=== PATIENT | male | born 1970 | race Caucasian/White ===

== ENCOUNTER 2024-07-24 14:32 | Outpatient (AMB) | payer OTHER, SELFPAY ==
[2024-07-24 14:41] VITALS: BP 137/94; PULSE 94; O2SAT 97; BMI 44.9
--- NOTE | 2024-07-24 14:41 | MHC.OFFVIS ---
Vital Signs 07/24/24 14:41 Height 5 ft 11 in Weight 322 lb BMI 44.9 BP 137/94 H Blood Pressure Location Lt brachial Position Sitting Pulse 94 Pulse Source Pulse Oximeter Pulse Oximetry (%) 97 Oxygen Delivery Method Room Air Intake Visit Reasons: Right Shoulder Pain Allergies No Known Allergies Allergy (Verified 07/24/24 15:43) HPI Comments Details: Scott is a very pleasant 54-year-old male who presents to the office today for evaluation management of his chronic right shoulder pain Patient has suffered an injury while at work 04/2023. He was carrying a sheet of plywood overhead and it slipped, when he went to grab it he felt a pop in his shoulder. He was evaluated in the emergency room, then by Orthopedics. Underwent surgery for the right shoulder but pain persists. Patient has completed physical therapy with no improvement. He has been taking nonsteroidal anti-inflammatory medications and Tylenol without improvement Amitriptyline was started by Orthopedics, this allowed him to get about 4 hours of uninterrupted sleep however after recent dose increase to 100 mg at bedtime he started to have vivid dreams and nightmares He was referred to our office for options including medication management. He is not interested in opioid medications at this time He had a cortisone injection in his shoulder about 6 months ago which did not provide him any relief Pain today is rated as 4/10, constant worse with movement. In terms of muscle damage condition is described as pulsing, throbbing, dull, sore, hurting, aching, tiring, shooting, stabbing, ranging, pinching, tearing Pain is constant, worse at bedtime and with movement. Denies current use of anti coagulants. Denies history of diabetes or elevated A1c Denies implantable devices, pacemaker or defibrillator Endorses current use of nicotine/tobacco, greater than 1 pack per day Endorses rare EtOH use, less than 1 drink a month Denies current use of illicit/recreational substances Review of Systems Const All systems reviewed & are unremarkable except as noted in HPI and below Physical Exam Vital Signs: Last Vital Signs Pulse 94 07/24/24 14:41 BP 137/94 H 07/24/24 14:41 Pulse Ox 97 07/24/24 14:41 Oxygen Delivery Method Room Air 07/24/24 14:41 BMI result Body Mass Index 44.9 General: awake, alert, oriented. Answers questions appropriately. Fully engaged in examination. Skin: warm, dry, intact HEENT: Normocephalic. Hearing intact. Cardiac: External chest normal in appearance. Respiratory: No cough, audible wheezing or stridor. Abdomen: without gross distension. MS: No obvious swelling or deformities. Right shoulder: Tenderness to palpation posterior and lateral right shoulder. Tenderness over GH. Tenderness over biceps tendon. Decreased range of motion, pain with overhead reach and behind the back reach. Neurological: Oriented to person, place, time and situation. Thought process intact. No gait abnormalities appreciated. Psychiatric: Appropriate mood and affect. Good judgment and insight. Results Reviewed Results Reviewed: 02/11/2023 MRI right shoulder Assessment & Plan Assessment & Plan (1) Right shoulder pain: Code(s): M25.511 - Pain in right shoulder Category: Medical Plan Scott is a very pleasant 54-year-old male who presented to the office today for evaluation management of his chronic right shoulder pain. Will discontinue amitriptyline given patient's reported side effects of nightmares. We will taper, 50 mg q.h.s. x2 weeks then 25 mg q.h.s. x2 weeks. New prescription for gabapentin 300 mg p.o. t.i.d.. Patient was advised on cautions for use. May cause drowsiness, do not take with any other MECHANIC GENERAL OPERATIONAL TEST depressants. Patient has exhausted conservative therapy including PT, NSAIDs, cortisone injections. Will schedule for right fluoroscopy/US guided diagnostic suprascapular nerve block with local anesthetic. If patient reports good results with plan for right suprascapular sprint PNS All questions and concerns were answered, patient agrees with the plan. Follow up after nerve block, sooner if needed Medications: New amitriptyline 50 mg at bedtime for 2 weeks then decrease to 25 mg daily at bedtime for 2 weeks then discontinue use 50 mg (2 x 25 mg) PO BEDTIME 60 tabs 0RF gabapentin 300 mg PO TID 90 caps 1RF diclofenac potassium Take with food. Do not take with any other nonsteroidal anti-inflammatory medications. 50 mg PO BID 60 tabs 0RF Coding Level of Care Code New Pt Level 4 (89181) Complex EM visit Add On G2211 Diagnoses Right shoulder pain M25.511
== END 2024-07-24 15:37 | disposition home or self-care (01) ==
PROVIDERS: Referring Provider Orthopaedic Surgery; Visit Provider Registered Nurse Emergency
DX: M25.511 Pain in right shoulder (principal)
CPT/HCPCS: 99204; G2211

== ENCOUNTER → 2024-07-24 14:32 | Outpatient (BNVA) | payer OTHER, SELFPAY | PROVIDERS: Referring Provider Orthopaedic Surgery; Visit Provider Registered Nurse Emergency | DX: M25.511 Pain in right shoulder (principal) | CPT/HCPCS: 99202 ==

== ENCOUNTER 2025-01-21 08:20 | Outpatient (AMB) | payer OTHER, SELFPAY ==
[2025-01-21 08:49] VITALS: BP 137/98; PULSE 78; O2SAT 97; BMI 44.8
--- NOTE | 2025-01-21 08:49 | A.OFFVIS_ITS ---
Vital Signs 3 01/21/25 08:49 Height 5 ft 11 in Weight 321 lb BMI 44.8 BP 137/98 H Blood Pressure Location Rt brachial Position Sitting Pulse 78 Pulse Source Pulse Oximeter Pulse Oximetry (%) 97 Oxygen Delivery Method Room Air Intake Visit Reasons: FU for Rx refill Communication Lecturer Required: No Allergies No Known Allergies Allergy (Verified 01/21/25 08:50) Medication List - Last Reconciled 01/21/25 by Annie Haider, BENEFIT SPECIALIST celecoxib (Celebrex) 50 mg PO BID gabapentin 400 mg PO TID HPI Comments Details: The patient is a 54-year-old male presenting for right shoulder pain and medication adjustment. The chronic right shoulder pain began following a work accident that resulted in a bicep tendon rupture and rotator cuff damage. Surgical intervention involved partial repair and debridement of bone spurs. Despite post-operative physical therapy, the patient experienced exacerbated symptoms, leading to cessation of therapy. The shoulder pain persists with patterns of radiation across the shoulder and down into the back, worsening with movement and causing sleep disturbances. Current treatment includes gabapentin and Celebrex, with procedural plans delayed due to workman's compensation issues. Patient has been in contact with his sql ssis developer but they have not received a response from relay adjuster on approval for diagnostic injection. - Onset: Following an accident involving a bicep tendon rupture and rotator cuff injury - Quality: Persistent, radiating pain - Location: Shoulder and arm, radiating to the back - Exacerbating Factors: Physical activity, certain arm movements - Relieving Factors: Medication (gabapentin, celebrex), rest - Interference: Sleep disturbances, difficulty with daily activities requiring shoulder use - Affect: The pain is impacting sleep quality and daily functioning - Analgesia: Currently using gabapentin 400 mg three times a day and celebrex - Adverse Effects: No significant side effects from gabapentin reported - Activities of Daily Living: Difficulty with tasks involving shoulder use, disrupted sleep - Aberrant Drug Related Behaviors: None reported Prior: Scott is a very pleasant 54-year-old male who presents to the office today for evaluation management of his chronic right shoulder pain Patient has suffered an injury while at work 04/2023. He was carrying a sheet of plywood overhead and it slipped, when he went to grab it he felt a pop in his shoulder. He was evaluated in the emergency room, then by Orthopedics. Underwent surgery for the right shoulder but pain persists. Patient has completed physical therapy with no improvement. He has been taking nonsteroidal anti-inflammatory medications and Tylenol without improvement Amitriptyline was started by Orthopedics, this allowed him to get about 4 hours of uninterrupted sleep however after recent dose increase to 100 mg at bedtime he started to have vivid dreams and nightmares He was referred to our office for options including medication management. He is not interested in opioid medications at this time He had a cortisone injection in his shoulder about 6 months ago which did not provide him any relief Pain today is rated as 4/10, constant worse with movement. In terms of muscle damage condition is described as pulsing, throbbing, dull, sore, hurting, aching, tiring, shooting, stabbing, ranging, pinching, tearing Pain is constant, worse at bedtime and with movement. Denies current use of anti coagulants. Denies history of diabetes or elevated A1c Denies implantable devices, pacemaker or defibrillator Endorses current use of nicotine/tobacco, greater than 1 pack per day Endorses rare EtOH use, less than 1 drink a month Denies current use of illicit/recreational substances Review of Systems Const Details: - Musculoskeletal: Reports chronic right shoulder pain and impaired function in shoulder use - Neurological: Denies brain fog, no reported side effects impacting cognitive function Physical Exam Vital Signs: Last Vital Signs Pulse 78 01/21/25 08:49 BP 137/98 H 01/21/25 08:49 Pulse Ox 97 01/21/25 08:49 Oxygen Delivery Method Room Air 01/21/25 08:49 BMI result Body Mass Index 44.8 General: awake, alert, oriented. Answers questions appropriately. Fully engaged in examination. Skin: warm, dry, intact HEENT: Normocephalic. Hearing intact. Cardiac: External chest normal in appearance. Respiratory: No cough, audible wheezing or stridor. Abdomen: without gross distension. MS: No obvious swelling or deformities. Right shoulder: Tenderness to palpation posterior and lateral aspect. Tenderness over GH. Tenderness over biceps tendon. Decreased range of motion. Neurological: Oriented to person, place, time and situation. Thought process intact. No gait abnormalities appreciated. Psychiatric: Appropriate mood and affect. Good judgment and insight. Results Reviewed Results Reviewed: 02/11/2023 MRI right shoulder Assessment & Plan Assessment & Plan (1) Right shoulder pain: Code(s): M25.511 - Pain in right shoulder Category: Medical Plan I will increase the gabapentin dosage to 600 mg three times a day given the patient's tolerance and lack of adverse effects and reassess pain management. The current celebrex dose will be maintained. I advised cautious titration of activity to avoid exacerbation. Follow-up is planned for six months or sooner if required. We will resubmit for workman's compensation approval for the right fluoroscopy/US guided diagnostic suprascapular nerve block with local anesthetic, aiming to address procedural delays. During our discussion, I recommended increasing the gabapentin dosage to 600 mg three times a day based on current tolerability. We discussed the challenges with workman's compensation and plan to resubmit the diagnostic injection proposal to expedite the procedural approval process. The patient understands the rationale behind the medication adjustment, including potential benefits and risks, and agrees with the plan. I encouraged the continuation of prescribed exercises and educated on monitoring for any increased side effects. Follow-up was agreed upon in six months or sooner if the workman's compensation situation requires it. - Increase gabapentin to 600 mg three times daily. - Continue current celebrex prescription. - Report any increased fatigue or side effects from the new medication dosage. - Monitor changes in pain levels and function. - Engage in manageable physical activities to maintain shoulder range of motion. - Coordinate with your employment attorney regarding workman's compensation delays. - Schedule a follow-up in six months or earlier if needed depending on the workman's compensation progress. Patient was informed and verbally consented to the use of an ambient scribe for clinic note documentation during this visit. Medications: New 2 gabapentin 600 mg PO TID 90 tabs 5RF Refilled 2 celecoxib (Celebrex) Discontinue diclofenac prior to taking this medication 50 mg PO BID 60 caps 5RF Discontinued 2 gabapentin Discontinued Reason: Doctor's Order 400 mg PO TID 90 caps 3RF Coding Level of Care Code Est Pt Level 3 (88708) Complex EM visit Add On G2211 Diagnoses Right shoulder pain M25.511
== END 2025-01-21 09:22 | disposition home or self-care (01) ==
LOC: HO.PMC 08:21
PROVIDERS: Visit Provider Registered Nurse Emergency
DX: M25.511 Pain in right shoulder (principal)
CPT/HCPCS: 99213; G2211

== ENCOUNTER → 2025-01-21 08:20 | Outpatient (BNVA) | payer OTHER, SELFPAY | PROVIDERS: Visit Provider Registered Nurse Emergency | DX: M25.511 Pain in right shoulder (principal) | CPT/HCPCS: 99212 ==

== ENCOUNTER 2025-02-24 06:29 | Outpatient (REF) | payer OTHER, SELFPAY ==
--- NOTE | ~2025-02-24 | FL_ITS ---
EXAMINATION: XR FLUOROSCOPY WITH IMAGES CLINICAL INFORMATION: Right shoulder pain management injection. COMPARISON: None available. TECHNIQUE: Fluoroscopy provided to: Dr. Cifuentes Fluoroscopy time: 0.3 minutes DAP: [id number] [id number] Images: 2 FINDINGS: 2 fluoroscopic spot images taken during pain management injection. Please refer to the full operative report for detail. FL/FL guidance in treatment room IMPRESSION: Fluoroscopic guidance. Electronically signed by: Ludwig Reyes MD 02/26/2025 01:26 PM EDT
== END 2025-02-24 06:30 | disposition home or self-care (01) ==
LOC: CF 06:29
PROVIDERS: Visit Provider Anesthesiology
DX: M25.511 Pain in right shoulder (principal)
CPT/HCPCS: 64418; J2003; J2795; Q9967

== ENCOUNTER 2025-02-24 13:06 | Outpatient (AMB) | payer OTHER, SELFPAY ==
[2025-02-24 13:14] VITALS: BP 118/78; PULSE 75; RESP 16; O2SAT 95
--- NOTE | 2025-02-24 13:14 | A.OFFVIS_ITS ---
Vital Signs 02/24/25 13:14 02/24/25 13:35 BP 118/78 122/82 Blood Pressure Location Lt brachial Lt brachial Position Sitting Sitting Respiration 16 16 Pulse 75 75 Pulse Source Pulse Oximeter Pulse Oximeter Pulse Oximetry (%) 95 95 Oxygen Delivery Method Room Air Room Air Intake Visit Reasons: RIGHT DIAGNOSTIC SUPRASCAPULAR NERVE BLOCK Supervisor Frame Assembly Required: No Allergies No Known Allergies Allergy (Verified 02/24/25 13:14) Medication List - Last Reconciled 02/24/25 by Olga Emanuel LPN celecoxib (Celebrex) 50 mg PO BID gabapentin 600 mg PO TID Physical Exam Vital Signs: Last Vital Signs Pulse 75 02/24/25 13:35 Resp 16 02/24/25 13:35 BP 122/82 02/24/25 13:35 Pulse Ox 95 02/24/25 13:35 Oxygen Delivery Method Room Air 02/24/25 13:35 Assessment & Plan Assessment & Plan (1) Right shoulder pain: Code(s): M25.511 - Pain in right shoulder Category: Medical Plan Right diagnostic suprascapular nerve block. Scott is 54 years old gentleman who is suffering from labral tear of the right shoulder glenohumeral joint, status post intra-articular steroid injections, status post unsuccessful surgery to repair the glenohumeral joint with chronic pain in the right shoulder mostly on the posterior surface. He came today to the operating room to receive diagnostic suprascapular nerve block. Informed consent was carefully explained to the patient risks of bleeding infection and pneumothorax were explained to the patient. He was taken to the operating room and positioned prone on operating table with a pillow under his right shoulder. Time-out was performed delineating name and date of of the patient side and site of the procedure as well as patient allergies. His right side of the upper back right side of the neck and posterior shoulder were prepped with ChloraPrep and draped with sterile self adhesive utility towels. C-arm was brought over the operating field and picture of the right scapula was demonstrated on the screen. Coracoid process and suprascapular notch were detected on the screen. The suprascapular notch was chosen as the target of the injection. The projection of the target to the skin was injected with mixture of lidocaine 2% and ropivacaine 0.5% one-to-one. After that 22 gauge 3-1/2 inch needle was driven to were the point of interest in tunnel vision fashion. When the tip of the needle gently contacted the bone injection of the contrast was performed demonstrating no intravascular and no pleural spread of the contrast. Injection of the diagnostic medication consisting of ropivacaine 0.5% 3 mL was performed after that into the needle. Upon completion of the injection the needle was removed. The patient tolerated the procedure well. He went outside of the operating room to recovery room where he recovered uneventfully. Orders: Orders FL guidance in treatment room Today M25.511 - Pain in right shoulder Coding Level of Care Code Procedure Only Diagnoses Right shoulder pain M25.511
[2025-02-24 13:35] VITALS: BP 122/82; PULSE 75; RESP 16; O2SAT 95
--- OUTSIDE RECORDS SUMMARY | 2025-02-24 15:05 | XMS_ITS | Clinical Summary ---
Author Organization [facility] Address [address] [place] [place] [address] Care Team Providers Care School Transportation Director Name Role Phone Jose Temple Primary Care Provider + Allergies Active Allergy Reactions Criticality Noted Date Comments Azithromycin Anaphylaxis High 04/26/2020 Cephalexin Hives 12/19/2024 Medications tadalafiL (CIALIS) 10 MG tablet 0 Active colchicine (COLCRYS) 0.6 mg tablet See Instructions, DAY 1 TAKE 2 TABLETS 1ST SIGN OF GOUT FOLLOWED BY 1 TABLET IN ONE HR DAY 2 TAKE 1 TABLET 2X DAY UNTIL FLARE RESOLVES, # 17 tablet, Refills 0, Maintenance, 10/10/24 10:55:00 AM EST, Instructions Replace Required Details, Route to Pharmacy Electronically, [id number], 177.8, cm, 06/02/24 7:33:00 EDT, Height, 143, kg, 07/03/23 15:20:00 EDT, Dry Weight 4 Active tadalafiL (Cialis) 10 MG tablet Take 1 tablet (10 mg total) by mouth 3 Active sodium chloride (OCEAN) 0.65 % nasal spray Instill 1 spray into each nostril as needed for congestion or rhinitis 5 12/19/19 26 Active Encounters Date Type Department Care Team Description 12/19/2024 9:40 AM EST Office Visit [facility] [address] [place] [address] [phone] Payton Rosa, ANABELLA Influenza due to identified novel influenza A virus with other respiratory manifestations (Primary Dx); Fever, unspecified fever cause; Upper respiratory infection, acute; Acute cough from Last 3 Months Social History Tobacco Use Types Packs/Day Years Used Date Smoking Tobacco: Every Day Cigarettes 1.5 38.2 Started: 12/19/1986 Smokeless Tobacco: Never Tobacco Cessation:Ready to Q uit: No; Counseling Given: Yes Comments:counseled him on dangers of smoking Sex and Gender Information Value Date Recorded Sex Assigned at Not on file Legal Sex Male 2:26 PM EDT Gender Identity Not on file Sexual Orientation Not on file Last Filed Vital Signs Vital Sign Reading Time Taken Comments Blood Pressure 130/85 12/19/2024 10:21 AM EST Pulse 100 12/19/2024 10:21 AM EST Temperature 36.8 ??C (98.2 ??F) 12/19/2024 10:[address] Respiratory Rate 16 12/19/2024 10:21 AM EST Oxygen Saturation 96% 12/19/2024 10:21 AM EST Inhaled Oxygen Concentration - - Weight 129 kg (285 lb) 04/26/2020 3:01 PM EDT Height 180.3 cm (5' 11 ) 04/26/2020 3:01 PM EDT Body Mass Index 39.75 04/26/2020 3:01 PM EDT Plan of Treatment Health Maintenance Due Date Last Done Comments Colorectal Cancer: COLONOSCO PY Screening every 10 yrs (or Modifier) 1972 Depression: Screening Annual ly using PHQ-2/9 in Adults 18 yrs or above (or HM Modifier)([facility]) 1972 Hepatitis C Virus Infection in Adolescents and Adults: Screening (or Modifier) ([facility]) 1990 [facility] Screening Reminder: Sera feliciano for all adults ([facility]) 1990 Pneumococcal Vaccination Scr eening: Patients 50+ yrs of age ([facility]) (1 of 2 - PCV) 1991 Lipid Screening: Every 5 yrs for Men aged 35+ (or HM Modifier) ([facility]) 2008 Colorectal Cancer Screening 45 -75 Yrs (or HM Modifier) 2017 Colorectal Cancer: FLEXIBLE SIGMOIDOSCOPY Screening every 5 yrs 2017 Colorectal Cancer: Fecal Immunochemical Test (FIT) Annually [facility] 2017 Colorectal Cancer: High-sens itivity gFOBT Screening Annually [facility] 2017 Colorectal Cancer: Stool Col oguard Screening every 3 yrs 2017 Colorectal Cancer:CT Colonog ivelisse Screening every 5 yrs 2017 Lung Cancer: Screening Annua lly in adults aged 50 to 80 years (or HM Modifiers)([facility]) 2022 Zoster/Shingles Vaccine Seri es Screening: Adults aged 18+ yrs (or HM Modifiers)([facility]) (1 of 2) 2022 COVID-19 Vaccine Screening: Initial Series and Booster Status ([facility]) ( season) 2024 02/21/2022, 01/12/2021, 12/15/2020 Flu Vaccination: Yearly for ages 18mos through 64 years (or Modifier)([facility]) 05/29/2025 Tobacco Smoking Cessation: i n Adults excluding Women: Behavioral and Pharmacotherapy Interventions ([facility]) 12/19/2025 12/19/2024 DTaP/Tdap/Td Vaccines ([facility]) (2 - Td or Tdap) 11/22/2028 11/22/2018 Medical Devices Not on file Procedures Procedure Name Priority Date/Time Associated Diagnosis Comments INFLUENZA MOLECULAR POCT Routine 12/19/2024 11:08 AM EST Fever, unspecified fever cause from Last 3 Months Results * (ABNORMAL) Influenza Molecular POCT (12/19/2024 11:08 AM EST) Pathologist [facility] POC MOLECULAR INFLUENZA A AGN Positive(A) Negative, Invalid, Not Tested, ERRONEOUS FRANCIS [id number] POC MOLECULAR INFLUENZA B AGN Negative Negative, Invalid, Not Tested, ERRONEOUS FRANCIS [id number] INTERNAL CONTROLS VALID Yes--Test working appropriately FRANCIS [id number] Expiration Date 09/06/25 FRANCIS [id number] Lot Number [id number] FRANCIS [id number] TEST BRAND NAME _ MOLECULAR FLU ID Now Flu FRANCIS [id number] Other 12/19/2024 11:0 8 AM EST us Payton Rosa NP POINT OF CARE TEST ORDERABLES Fi nal Result FRANCIS [id number] [address] [place] [address], [place] from Last 3 Months Insurance [facility] Care Teams School Transportation Director Relationship Specialty Start Date End Date Jose Temple PA [address] [place] [phone] PCP - General Physician Compressed Air Pile Driver Operator 04/26/20
--- OUTSIDE RECORDS SUMMARY | 2025-02-24 15:05 | XMS_ITS | Clinical Summary ---
Author Organization [facility] it Address [address] [place] [address] Care Team Providers Care Cost Estimator Name Role Phone Unavailable Primary Care Provider Unavailabl e Social History Tobacco Use Types Packs/Day Years Used Date Smoking Tobacco: Never Assessed Sex and Gender Information Value Date Recorded Sex Assigned at Not on file Legal Sex Male 8:23 PM EST Gender Identity Not on file Sexual Orientation Not on file Plan of Treatment Health Maintenance Due Date Last Done Comments DTaP,Tdap,and Td Vaccines (1 - Tdap) 1991 Hepatitis B Vaccines (1 of 3 - 19+ 3-dose series) 1991 Pneumococcal Vaccine: 50+ Ye ars (1 of 1 - PCV) 2022 Zoster Vaccines (1 of 2) 2022 Cholesterol Screening (Lipid Panel) 11/22/2023 Colorectal Cancer Screening: Colonoscopy 11/22/2023 Depression Screening 11/22/2023 HIV Screening 11/22/2023 Hepatitis C Screening 11/22/2023 Social Influencers of Health Screening 11/22/2023 COVID-19 Vaccine ( - 2023-2 5 season) 2024 Influenza Vaccine (Season Ended) 2025 HIB Vaccines Aged Out No longer eligi ble based on patient's age to complete this topic HPV Vaccines Aged Out No longer eligi ble based on patient's age to complete this topic Hepatitis A Vaccines Aged Out No long er eligible based on patient's age to complete this topic IPV Vaccines Aged Out No longer eligi ble based on patient's age to complete this topic MMR Vaccines Aged Out No longer eligi ble based on patient's age to complete this topic Meningococcal ACWY Vaccine Aged Out N o longer eligible based on patient's age to complete this topic Meningococcal B Vaccine Aged Out No l onger eligible based on patient's age to complete this topic Pneumococcal Vaccine: Pediat rics (0 to 5 Years) and At-Risk Patients (6 to 64 Years) Aged Out No longer eligible b ased on patient's age to complete this topic RSV Immunization Patients Un tomasz 20 months Aged Out No longer eligible b ased on patient's age to complete this topic Varicella Vaccines Aged Out No longer eligible based on patient's age to complete this topic
== END 2025-02-24 13:40 | disposition home or self-care (01) ==
LOC: HO.PMCPRC 13:06
PROVIDERS: Visit Provider Anesthesiology
DX: M25.511 Pain in right shoulder (principal)
CPT/HCPCS: 64418; 77002

== ENCOUNTER 2025-02-27 13:04 | Outpatient (AMB) | payer OTHER, SELFPAY ==
--- NOTE | 2025-02-27 13:07 | MHC.OFFVIS ---
Vital Signs 02/27/25 13:11 Height 5 ft 11 in Weight 321 lb BMI 44.8 BP 154/94 H Blood Pressure Location Lt brachial Position Sitting Pulse 69 Pulse Source Pulse Oximeter Pulse Oximetry (%) 97 Oxygen Delivery Method Room Air Intake Visit Reasons: RIGHT DIAGNOSTIC SUPRASCAPULAR NERVE BLOCK Intake Note: Pain today 03/07 Cost Control Specialist Required: No Accompanied by: Spouse Allergies No Known Allergies Allergy (Verified 02/27/25 13:11) HPI Comments Details: The patient is a 54-year-old male presenting with chronic shoulder pain for follow up 2 days s/p diagnostic left suprascapular nerve block. He reports significant exacerbation of the pain after the injection. The pain began some time back and has progressively impacted his activity levels and sleep quality. The patient recalls his shoulder becoming severely swollen after minimal physical therapy involving weights. Interventions including steroid injections have been tried; however, the patient experienced severe adverse effects post-injection, including worsening pain and difficulty sleeping. The pain encompasses a substantial portion of the shoulder, radiating into surrounding areas like the bicep and scapula. Aggravating factors include physical exertion, while medications such as gabapentin and Celebrex provide partial relief. The severity fluctuates, affecting daily life prominently and impairing sleep, despite some alleviation from increased gabapentin dosages. Past therapies have failed to significantly reduce pain, leading to considerations of further orthopedic consultation and possible joint replacement. Concerns about surgical outcomes and managing long-term pain post-surgery are crucial to his decision-making process. - Onset & Timing: Chronic, worsening over time, significant exacerbations post-exercise. - Quality & Character: Dull, aching pain radiating down the bicep and scapular area. - Primary Location: Shoulder. - Radiation: Extends to bicep and across the upper back. - Exacerbating Factors: Lifting, bending, various movements, particularly during therapy. - Relieving Factors: Gabapentin provides partial night-time relief; Celebrex helps as needed. - Interference: Quality of sleep, daily activities, ability to perform repetitive tasks, missing work due to excessive pain. - Affect: The pain has negatively affected mood and caused significant emotional distress. - Analgesia: Currently using gabapentin, Celebrex, and occasional Tylenol. Pain level varies between moderate to severe, with a goal of reducing intensity to a manageable level. - Adverse Effects: Past steroid injection caused severe burning sensations; gabapentin induces daytime sleepiness and fatigue. - Activities of Daily Living: Pain severely limits activity levels, sleep, and quality of life; functional goals include achieving better range of motion and pain control. - Aberrant Drug Behaviors: None reported or observed; compliance with medication regimen noted. Review of Systems Const Details: - Musculoskeletal: Reports chronic shoulder pain, difficulty with movement, and swelling post-exercise. - Neurological: Reports burning sensation following steroid injection and sleep disturbance. - General: Reports daytime fatigue and unintentional naps. Physical Exam Vital Signs: Last Vital Signs Pulse 69 02/27/25 13:11 BP 154/94 H 02/27/25 13:11 Pulse Ox 97 02/27/25 13:11 Oxygen Delivery Method Room Air 02/27/25 13:11 BMI result Body Mass Index 44.8 General: awake, alert, oriented. Answers questions appropriately. Fully engaged in examination. Skin: warm, dry, intact HEENT: Normocephalic. Hearing intact. Cardiac: External chest normal in appearance. Respiratory: No cough, audible wheezing or stridor. Abdomen: without gross distension. MS: No obvious swelling or deformities. Right shoulder: Tenderness to palpation posterior, anterior and lateral aspect. Tenderness over GH. Tenderness over biceps tendon. Decreased range of motion. Neurological: Oriented to person, place, time and situation. Thought process intact. No gait abnormalities appreciated. Psychiatric: Appropriate mood and affect. Good judgment and insight. Results Reviewed Results Reviewed: 02/11/2023 MRI right shoulder Assessment & Plan Assessment & Plan (1) Right shoulder pain: Code(s): M25.511 - Pain in right shoulder Category: Medical Plan I will recommend a potential referral to a shoulder specialist to discuss surgical options, including joint replacement. This decision is influenced by the chronic nature of the patient's shoulder pain and previous unsuccessful interventions. Continuation and monitoring of medications like gabapentin and Celebrex for pain management will be pursued, balancing effectiveness against adverse effects. Evaluation of orthotic devices may provide additional relief, supporting functional improvements. Detailed discussions about surgical risks and rehabilitation expectations will be necessary should the patient consider such interventions. Review of interscalene block as a possible procedure for further relief requires additional patient deliberation and comfort with potential procedural discomfort. We reviewed the chronicity and challenges associated with the patient's shoulder pain, discussing non-operative and operative management options extensively. We considered the benefits and risks of pursuing a consultation with an developmental specialist for potential joint replacement due to the progressive nature of the degenerative condition and the impairment of daily functions. Alternative modalities, including current pharmacologic therapies (gabapentin, Celebrex) and possible future procedural options like interscalene blocks, were discussed, weighing each option's efficacy and tolerance. I explained the possible need for future interventions, emphasizing realistic expectations regarding surgical outcomes and emphasizing the potential altered quality of life. We agreed on a detailed follow-up to reassess management effectiveness and adaptation to therapeutic interventions. Patient would like to consider ultrasound-guided interscalene nerve block was diagnostic injection in preparation for sprint PNS versus referral to orthopedic shoulder specialist. They will contact the office once this decision has been made. Patient was informed and verbally consented to the use of an ambient scribe for clinic note documentation during this visit. Patient Instructions: - Continue taking gabapentin and Celebrex as prescribed for pain management. - Consider using Tylenol as needed for additional pain relief, but avoid Motrin due to current medication regimen. - Evaluate options for supportive devices, like neoprene straps, for shoulder relief. - Monitor pain levels and functional improvements, and contact us if there is worsening discomfort. - Think about consulting a shoulder specialist for possible joint replacement discussion. - Ensure rest and modify activities to prevent exacerbation of shoulder pain. - Follow up as needed for reassessment of pain management and consider future interventions. Coding Level of Care Code Est Pt Level 3 (86086) Complex EM visit Add On G2211 Diagnoses Right shoulder pain M25.511
[2025-02-27 13:11] VITALS: BP 154/94; PULSE 69; O2SAT 97; BMI 44.8
--- OUTSIDE RECORDS SUMMARY | 2025-02-27 13:25 | XMS_ITS | Clinical Summary ---
Author Organization [facility] it Address [address] [place] [address] Care Team Providers Care Live In Housekeeper Nanny Name Role Phone Unavailable Primary Care Provider [...]
--- OUTSIDE RECORDS SUMMARY | 2025-02-27 13:25 | XMS_ITS | Clinical Summary ---
Author Organization [employer] Address [address] [place] [address] Care Team Providers Care Sales Lead Generator Name Role Phone Jose Temple Primary Care [...] Replace Required Details, Route to Pharmacy Electronically, [id number], 177.8, cm, 06/02/24 7:33:00 EDT, Height, 143, [...] 12/19/2024 9:40 AM EST Office [place] [id number] [place] [address] [phone] Payton Rosa, ANABELLA Influenza due to identified [...] Adults 18 yrs or above (or HM Modifier)([facility]) 1990 Hepatitis C Virus Infection in Adolescents and Adults: Screening (or Modifier) ([facility]) 1990 [facility] Screening Reminder: Sera feliciano for all adults ([facility]) 1990 Pneumococcal Vaccination Scr eening: Patients 50+ yrs of age ([facility]) (1 of 2 - PCV) 1991 Lipid Screening: Every 5 yrs for Men aged 35+ (or HM Modifier) ([facility]) 2008 Colorectal Cancer Screening 45 -75 Yrs (or HM Modifier) 2017 Colorectal Cancer: FLEXIBLE SIGMOIDOSCOPY Screening every 5 yrs 2017 Colorectal Cancer: Fecal Immunochemical Test (FIT) Annually [facility] 2017 Colorectal Cancer: High-sens itivity gFOBT Screening Annually [facility] 2017 Colorectal Cancer: Stool Col oguard Screening every 3 yrs 2017 Colorectal Cancer:CT Colonog ivelisse Screening every 5 yrs 2017 Lung Cancer: Screening Annua lly in adults aged 50 to 80 years (or HM Modifiers)([facility]) 2022 Zoster/Shingles Vaccine Seri es Screening: Adults aged 18+ yrs (or HM Modifiers)([facility]) (1 of 2) 2022 COVID-19 Vaccine Screening: Initial Series and Booster Status ([facility]) ( season) 2024 02/21/2022, 01/12/2021, 12/15/2020 Flu Vaccination: Yearly for ages 18mos through 64 years (or Modifier)([facility]) 05/29/2025 Tobacco Smoking Cessation: i n Adults excluding Women: Behavioral and Pharmacotherapy Interventions ([facility]) 12/19/2025 12/19/2024 DTaP/Tdap/Td Vaccines ([facility]) (2 - Td or Tdap) 11/22/2028 11/22/2018 Medical Devices Not on file Procedures Procedure Name Priority Date/Time Associated Diagnosis Comments INFLUENZA MOLECULAR POCT Routine 12/19/2024 11:08 AM EST Fever, unspecified fever cause from Last 3 Months Results * (ABNORMAL) Influenza Molecular POCT (12/19/2024 11:08 AM EST) Pathologist [facility] POC MOLECULAR INFLUENZA A AGN Positive(A) Negative, Invalid, Not Tested, ERRONEOUS FRANCIS [id number] POC MOLECULAR INFLUENZA B AGN Negative Negative, Invalid, Not Tested, ERRONEOUS FRANCIS [id number] INTERNAL CONTROLS VALID Yes--Test working appropriately FRANCIS [id number] Expiration Date 09/06/25 FRANCIS [id number] Lot Number [id number] FRANCIS [id number] TEST BRAND NAME _ MOLECULAR FLU ID Now Flu FRANCIS [id number] Other 12/19/2024 11:0 8 AM EST us Payton Rosa NP POINT OF CARE TEST ORDERABLES Fi nal Result FRANCIS [id number] [address] [place] [address], [place] from Last 3 Months Insurance [facility] Care Teams Sales Lead Generator Relationship Specialty Start Date End Date Jose Temple PA [address] [place] [address] PCP - General Physician Commercial Cleaner 04/26/20
== END 2025-02-27 13:44 | disposition home or self-care (01) ==
LOC: HO.PMC 13:05
PROVIDERS: Visit Provider Registered Nurse Emergency
DX: M25.511 Pain in right shoulder (principal)
CPT/HCPCS: 99213; G2211

== ENCOUNTER → 2025-02-27 13:04 | Outpatient (BNVA) | payer OTHER, SELFPAY | PROVIDERS: Visit Provider Registered Nurse Emergency | DX: M25.511 Pain in right shoulder (principal); G89.29 Other chronic pain | CPT/HCPCS: 99212 ==

== ENCOUNTER 2025-04-17 13:22 | Outpatient (AMB) | payer OTHER, SELFPAY ==
--- NOTE | 2025-04-17 13:24 | A.OFFVIS_ITS ---
Vital Signs 3 04/17/25 13:25 Height 5 ft 11 in Weight 321 lb BMI 44.8 BP 141/90 H Blood Pressure Location Lt brachial Position Sitting Respiration 16 Pulse 86 Pulse Source Pulse Oximeter Pulse Oximetry (%) 95 Intake Visit Reasons: 6 weeks FU Soil Science Professor Required: No Accompanied by: Life Partner Allergies No Known Allergies Allergy (Verified 04/17/25 13:28) HPI Comments Details: The patient is a 55-year-old male presenting with chronic shoulder pain. The shoulder pain is severe and impacts daily activities, with previous recommendations for a shoulder replacement not yet pursued. He finds some relief with gabapentin and Celebrex. Sleep is still impaired secondary to the shoulder pain. Remains out of work, limited use of the right upper extremity. He has been trying to use it some so that it does not freeze up though suffers with severe pain with even minimal use of the right upper extremity. - Onset: Chronic shoulder pain persisting over time - Quality: Severe, constant pain worsened by movement - Location: Shoulder - Exacerbating factors: Movement, certain positions - Relieving factors: Medication provides some relief - Interference: Affects daily activities and quality of life - Affect: Pain impacts mood and psychological well-being, contributing to weight gain and decreased activity. - Analgesia: Current medications include gabapentin, Celebrex, and Tylenol, providing some relief. - Adverse Effects: No specific adverse effects from medications reported. - Activities of Daily Living: Pain significantly affects daily activities and quality of life. - Aberrant Drug Related Behaviors: No aberrant behaviors reported. Prior visit: The patient is a 54-year-old male presenting with chronic shoulder pain for follow up 2 days s/p diagnostic left suprascapular nerve block. He reports significant exacerbation of the pain after the injection. The pain began some time back and has progressively impacted his activity levels and sleep quality. The patient recalls his shoulder becoming severely swollen after minimal physical therapy involving weights. Interventions including steroid injections have been tried; however, the patient experienced severe adverse effects post- injection, including worsening pain and difficulty sleeping. The pain encompasses a substantial portion of the shoulder, radiating into surrounding areas like the bicep and scapula. Aggravating factors include physical exertion, while medications such as gabapentin and Celebrex provide partial relief. The severity fluctuates, affecting daily life prominently and impairing sleep, despite some alleviation from increased gabapentin dosages. Past therapies have failed to significantly reduce pain, leading to considerations of further orthopedic consultation and possible joint replacement. Concerns about surgical outcomes and managing long-term pain post- surgery are crucial to his decision-making process. - Onset & Timing: Chronic, worsening over time, significant exacerbations post- exercise. - Quality & Character: Dull, aching pain radiating down the bicep and scapular area. - Primary Location: Shoulder. - Radiation: Extends to bicep and across the upper back. - Exacerbating Factors: Lifting, bending, various movements, particularly during therapy. - Relieving Factors: Gabapentin provides partial night-time relief; Celebrex helps as needed. - Interference: Quality of sleep, daily activities, ability to perform repetitive tasks, missing work due to excessive pain. - Affect: The pain has negatively affected mood and caused significant emotional distress. - Analgesia: Currently using gabapentin, Celebrex, and occasional Tylenol. Pain level varies between moderate to severe, with a goal of reducing intensity to a manageable level. - Adverse Effects: Past steroid injection caused severe burning sensations; gabapentin induces daytime sleepiness and fatigue. - Activities of Daily Living: Pain severely limits activity levels, sleep, and quality of life; functional goals include achieving better range of motion and pain control. - Aberrant Drug Behaviors: None reported or observed; compliance with medication regimen noted. Review of Systems Const Details: - Musculoskeletal: Reports chronic shoulder pain - Neurological: Reports tingling in hands, denies other neurological symptoms. Physical Exam Vital Signs: Last Vital Signs Pulse 86 04/17/25 13:25 Resp 16 04/17/25 13:25 BP 141/90 H 04/17/25 13:25 Pulse Ox 95 04/17/25 13:25 BMI result Body Mass Index 44.8 General: awake, alert, oriented. Answers questions appropriately. Fully engaged in examination. Skin: warm, dry, intact HEENT: Normocephalic. Hearing intact. Cardiac: External chest normal in appearance. Respiratory: No cough, audible wheezing or stridor. Abdomen: without gross distension. MS: No obvious swelling or deformities. Right shoulder: Tenderness to palpation posterior, anterior and lateral aspect. Tenderness over GH. Tenderness over biceps tendon. Decreased range of motion. Neurological: Oriented to person, place, time and situation. Thought process intact. No gait abnormalities appreciated. Psychiatric: Appropriate mood and affect. Good judgment and insight. Results Reviewed Results Reviewed: 02/11/2023 MRI right shoulder Assessment & Plan Assessment & Plan (1) Right shoulder pain: Code(s): M25.511 - Pain in right shoulder Category: Medical Plan The patient will be referred to Dr. Catalino Plunkett for evaluation and potential surgical intervention for shoulder pain. Patient and his have requested referral to Dr. Plunkett as they are familiar with him from previous orthopedic surgeries. Current medications, including gabapentin and Celebrex, will be continued for pain management, with monitoring for symptom changes. Workman's compensation will handle the approval process for the referral and treatments. Patient was informed and verbally consented to the use of an ambient scribe for clinic note documentation during this visit. Orders: Referrals 2 Orthopedics Referral M25.511 - Pain in right shoulder Patient Instructions: - Continue taking gabapentin, Celebrex, and Tylenol as prescribed. - Await contact from Dr. Catalino Plunkett's office for an appointment. - Contact workman's compensation if there are any issues with the referral process. Coding Level of Care Code Est Pt Level 3 (41939) Complex EM visit Add On G2211 Diagnoses Right shoulder pain M25.511
--- OUTSIDE RECORDS SUMMARY | 2025-04-17 13:24 | XMS_ITS | Clinical Summary ---
Author Organization [facility] [employer] Address [address] [place] [address] Care Team Providers Care Hand Button Splitter Name Role Phone Jose Temple Primary Care [...] Replace Required Details, [id number], 177.8, cm, 06/02/24 7:33:00 EDT, Height, 143, kg, 07/03/23 15:20:00 EDT, Dry Weight 4 Active tadalafiL (Cialis) 10 MG tablet Take 1 tablet (10 mg total) by mouth 3 Active sodium chloride (OCEAN) 0.65 % nasal spray Instill 1 spray into each nostril as needed for congestion or rhinitis 5 12/19/19 26 Active Social History Tobacco Use Types Packs/Day Years Used Date Smoking Tobacco: Every Day Cigarettes 1.5 38.3 Started: 12/19/1986 Smokeless Tobacco: Never Tobacco Cessation:Ready [...] 100 12/19/2024 10:21 AM EST Temperature 36.8 C (98.2 F) 12/19/2024 10:23 AM EST Respiratory Rate 16 12/19/2024 10:21 AM EST [...] Adults 18 yrs or above (or HM Modifier)([facility]) 1990 Hepatitis C Virus Infection in Adolescents and Adults: Screening (or Modifier) ([facility]) [address] [facility] Screening Reminder: Sera ually for all adults ([facility]) 1990 Pneumococcal Vaccination Scr eening: Patients 50+ yrs of age ([facility]) (1 of 2 - PCV) 1991 Colorectal Cancer Screening 45 -75 Yrs (or HM Modifier) 2017 Colorectal Cancer: FLEXIBLE SIGMOIDOSCOPY Screening every 5 yrs 2017 Colorectal Cancer: Fecal Immunochemical Test (FIT) Annually [facility] 2017 Colorectal Cancer: High-sens itivity gFOBT Screening Annually [facility] 2017 Colorectal Cancer: Stool Col oguard Screening every 3 yrs 2017 Colorectal Cancer:CT Colonog ivelisse Screening every 5 yrs 2017 Lung Cancer: Screening Annua lly in adults aged 50 to 80 years (or HM Modifiers)([facility]) 2022 Zoster/Shingles Vaccine Seri es Screening: Adults aged 18+ yrs (or HM Modifiers)([facility]) (1 of 2) 2022 COVID-19 Vaccine Screening: Initial Series and Booster Status ([facility]) (2023- season) 2024 02/21/2022, 01/12/2021, 12/15/2020 Flu Vaccination: Yearly for ages 18mos through 64 years (or Modifier)([facility] ) 05/29/2025 Tobacco Smoking Cessation: i n Adults excluding Women: Behavioral and Pharmacotherapy Interventions ([facility] ) 12/19/2025 12/19/2024 DTaP/Tdap/Td Vaccines ([facility]) (2 - Td or Tdap) 11/22/2028 11/22/2018 Medical Devices Not on file Insurance [facility] Care Teams Hand Button Splitter Relationship Specialty Start Date End Date Jose Temple PA [address] [place] [phone] PCP - General Physician Finished Carpet Inspector 04/26/20
[2025-04-17 13:25] VITALS: BP 141/90; PULSE 86; RESP 16; O2SAT 95; BMI 44.8
== END 2025-04-17 13:50 | disposition home or self-care (01) ==
LOC: HO.PMC 13:23
PROVIDERS: Visit Provider Registered Nurse Emergency
DX: M25.511 Pain in right shoulder (principal)
CPT/HCPCS: 99213; G2211

== ENCOUNTER → 2025-04-17 13:22 | Outpatient (BNVA) | payer OTHER, SELFPAY | PROVIDERS: Visit Provider Registered Nurse Emergency | DX: M25.511 Pain in right shoulder (principal) | CPT/HCPCS: 99212 ==

== ENCOUNTER 2025-06-26 14:47 | Outpatient (AMB) | payer OTHER, SELFPAY ==
[2025-06-26 14:49] VITALS: BP 133/85; PULSE 83; RESP 16; O2SAT 96; BMI 44.9
--- NOTE | 2025-06-26 14:49 | MHC.OFFVIS ---
Vital Signs 06/26/25 14:49 Height 5 ft 11 in Weight 322 lb BMI 44.9 BP 133/85 Blood Pressure Location Lt brachial Position Sitting Respiration 16 Pulse 83 Pulse Source Pulse Oximeter Pulse Oximetry (%) 96 Oxygen Delivery Method Room Air Intake Visit Reasons: 5 Month Follow Up Fly Winder Required: No Allergies No Known Allergies Allergy (Verified 06/26/25 14:53) HPI Comments Details: The patient is a 55-year-old male presenting with chronic shoulder pain. The right shoulder pain is described as originating from the shoulder blade and radiating outward, exacerbated by movement, and persistent since the last surgical intervention. The left shoulder pain is due to compensatory overuse, with delays in seeing an orthopedic nurse practitioner due to workman's compensation issues. Multiple surgical interventions have been performed, including for suspected frozen shoulder, with limited improvement in mobility and persistent pain. Current medications include gabapentin and Celebrex, providing partial relief, with the patient also experiencing weight gain due to decreased activity. - Onset: Persistent since last surgical intervention - Quality: Radiating from shoulder blade, exacerbated by movement - Location: Right shoulder, with compensatory pain in left shoulder - Exacerbating factors: Movement - Relieving factors: Medications provide partial relief - Interference: Limits mobility, contributes to weight gain - Affect: Pain impacts mood and psychological wellbeing, contributing to weight gain and decreased activity - Analgesia: Gabapentin 600 mg TID, Celebrex 50 mg BID, providing partial relief - Adverse Effects: No specific adverse effects reported - Activities of Daily Living: Pain limits mobility and contributes to weight gain - Aberrant Drug Related Behaviors: None reported Review of Systems Const Details: - Musculoskeletal: Reports chronic pain in right shoulder, compensatory pain in left shoulder, limited mobility, and clicking sounds upon movement - General: Reports weight gain due to decreased activity Physical Exam Exam Exam: General: awake, alert, oriented. Answers questions appropriately. Fully engaged in examination. Skin: warm, dry, intact HEENT: Normocephalic. Hearing intact. Cardiac: External chest normal in appearance. Respiratory: No cough, audible wheezing or stridor. Abdomen: without gross distension. MS: No obvious swelling or deformities. Neurological: Oriented to person, place, time and situation. Thought process intact. No gait abnormalities appreciated. Psychiatric: Appropriate mood and affect. Good judgment and insight. Vital Signs: Last Vital Signs Pulse 83 06/26/25 14:49 Resp 16 06/26/25 14:49 BP 133/85 06/26/25 14:49 Pulse Ox 96 06/26/25 14:49 Oxygen Delivery Method Room Air 06/26/25 14:49 BMI result Body Mass Index 44.9 Results Reviewed Results Reviewed: 02/11/2023 MRI right shoulder Assessment & Plan Assessment & Plan (1) Right shoulder pain: Code(s): M25.511 - Pain in right shoulder Category: Medical Plan The plan includes coordinating with workman's compensation to secure an orthopedic nurse practitioner appointment for further evaluation of the shoulder condition. Alternative treatments such as a spinal cord stimulator or platelet-rich plasma therapy may be explored if surgical options are not feasible, pending insurance coverage verification. The current medication regimen of gabapentin and Celebrex will be maintained, with ongoing monitoring for effectiveness and side effects. The patient is encouraged to maintain communication with his terminal worker to expedite the approval process for specialist consultations. Patient was informed and verbally consented to the use of an ambient scribe for clinic note documentation during this visit. Medications: Refilled celecoxib (Celebrex) Discontinue diclofenac prior to taking this medication 50 mg PO BID 60 caps 5RF gabapentin 600 mg PO TID 90 tabs 5RF Patient Instructions: - Continue taking gabapentin and Celebrex as prescribed. - Contact your terminal worker to expedite the workman's compensation approval for an orthopedic nurse practitioner appointment. - Follow up with the orthopedic nurse practitioner once the appointment is secured. - Discuss alternative treatments with your doctor if surgical options are not feasible. Coding Level of Care Code Est Pt Level 3 (79588) Complex EM visit Add On G2211 Diagnoses Right shoulder pain M25.511
--- OUTSIDE RECORDS SUMMARY | 2025-06-26 14:49 | XMS_ITS | Clinical Summary ---
Author Organization [facility] ity Address [address] [place] [address] Care Team Providers Care Sewer Separation Designer Name Role Phone Unavailable Primary Care Provider [...] Panel) 11/22/2023 Colorectal Cancer Screening: Colonoscopy 11/22/2023 HIV Screening 11/22/2023 Hepatitis C Screening 11/22/2023 Social Influencers of Health Screening 11/22/2023 COVID-19 Vaccine ( - 2023-2 5 season) 2024 Depression Screening 10/29/2024 Influenza Vaccine (#1) 2025 HIB Vaccines Aged Out No longer [...]
--- OUTSIDE RECORDS SUMMARY | 2025-06-26 14:49 | XMS_ITS | Clinical Summary ---
Author Organization [employer] [facility] [employer] [facility] Address [address] [place] [address] Care Team Providers Care Supervisor Word Processing Name Role Phone Jose Temple Primary Care [...] Replace Required Details, [id number], 177.8, cm, 06/02/24 7:33:00 EDT, Height, 143, [...] Date Smoking Tobacco: Every Day Cigarettes 1.5 38.5 Started: 12/19/1986 Smokeless Tobacco: Never Tobacco Cessation:Ready [...] Adults 18 yrs or above (or HM Modifier)([facility]) 1990 Hepatitis C Virus Infection in Adolescents and Adults: Screening (or Modifier) ([facility]) 1990 [facility] Screening Reminder: Sera ually for all adults ([facility]) 1990 Pneumococcal Vaccination Scr eening: Patients 50+ yrs of age ([facility]) (1 of 2 - PCV) 1991 Colorectal Cancer Screening 45 -75 Yrs (or HM Modifier) 2017 Colorectal Cancer: FLEXIBLE SIGMOIDOSCOPY Screening every 5 yrs 2017 Colorectal Cancer: Fecal Immunochemical Test (FIT) Annually [facility] 2017 Colorectal Cancer: High-sens itivity gFOBT Screening Annually [facility] 2017 Colorectal Cancer: Stool Col oguard Screening every 3 yrs 2017 Colorectal Cancer:CT Colonog ivelisse Screening every 5 yrs 2017 Lung Cancer: Screening Annua lly in adults aged 50 to 80 years (or HM Modifiers)([facility]) 2022 Zoster/Shingles Vaccine Seri es Screening: Adults aged 18+ yrs (or HM Modifiers)([facility]) (1 of 2) 2022 COVID-19 Vaccine Screening: Initial Series and Booster Status ([facility]) (2023- season) 2024 02/21/2022, 01/12/2021, 12/15/2020 Flu Vaccination: Yearly for ages 18mos through 64 years (or Modifier)([facility] ) 05/29/2025 Tobacco Smoking Cessation: i n Adults excluding Women: Behavioral and Pharmacotherapy Interventions ([facility] ) 12/19/2025 12/19/2024 DTaP/Tdap/Td Vaccines ([facility]) (2 - Td or Tdap) 11/22/2028 11/22/2018 Medical Devices Not on file Insurance [facility] Care Teams Supervisor Word Processing Relationship Specialty Start Date End Date Jose Temple PA [address] [place] [phone] PCP - General Physician Midwife 04/26/20
--- OUTSIDE RECORDS SUMMARY | 2025-06-26 14:49 | XMS_ITS | Patient Health Record ---
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 Name Role Phone Leonid Porter [phone] Allergies Allergen (clinical drug ingredient) Drug/Non Drug Allergy documented on EMR Reaction Allergy Type Onset Date Status Z Pac high fever, turn red Drug Allergy Active Reason For Referral No Information Medications Medication SIG (Take, Route, Frequency, Duration) Notes Start Date End Date Status Augmentin 875-125 MG 1 tablet Orally tyra ry 12 hrs; Duration: 10 day(s) 09/14/2017 Not-Terrell ing Econazole Nitrate 1 % 1 application to a ffected area Externally Once a day; Duration: 30 days 09/14/2017 Active Ibuprofen 800 MG TAKE 1 TABLET BY URVASHI THREE TIMES DAILY WITH FOOD Oral; Duration: 10 Not-Taki ng Social History Tobacco Use: Social History Observation Description Date Details (start date - stop date) Current Smoker NA - NA Tobacco Use/Smoking Question Answer Notes Are you a: current smoker How many cigarettes a day do you smoke? 21-30 Are you interested in quitting? Not ready to maureen t Alcohol Screen Question Answer Notes Did you have a drink contain ing alcohol in the past year? Yes How often did you have a dri nk containing alcohol in the past year? Monthly or less (1 point) How many drinks did you have on a typical day when you were drinking in the past year? 1 or 2 drinks (0 point) How often did you have 6 or more drinks on one occasion in the past year? Never (0 point) Points 1 Interpretation Negative Tobacco use other than smoking: Question Answer Notes Are you an other tobacco user? No Plan Of Treatment Pending Test Test Name Order Date X ray : Foot, right 3V 09/14/2017 14639- Nail Unit Biopsy 09/14/2017 Insurance Providers Payer Name Payer Address Payer Phone Subscriber Number Group Number Insured Name Patient Relationship to Insured Coverage Start Date Coverage End Date [facility] [address] [place] [address] [id number] Scott Doherty Self - patient is the insured Medical (General) History Medical History History ICD Code Anxiety Back,Hip,and Knee pain Broken bones Neuropathy Warts Mumps Chicken pox Surgical History Surgery Date(Month/Year) lumbar - 3,4,5 1995 Hospitalization History Reason Date(Month/Year) Urgent Care 08/27/17
== END 2025-06-26 15:17 | disposition home or self-care (01) ==
LOC: HO.PMC 14:48
PROVIDERS: Visit Provider Registered Nurse Emergency
DX: M25.511 Pain in right shoulder (principal)
CPT/HCPCS: 99213; G2211

== ENCOUNTER → 2025-06-26 14:47 | Outpatient (BNVA) | payer OTHER, SELFPAY | PROVIDERS: Visit Provider Registered Nurse Emergency | DX: M25.511 Pain in right shoulder (principal) | CPT/HCPCS: 99212 ==

== ENCOUNTER 2025-10-02 13:31 | Outpatient (AMB) | payer OTHER, SELFPAY ==
--- NOTE | 2025-10-02 13:32 | A.OFFVIS_ITS ---
Vital Signs 3 10/02/25 13:33 Height 5 ft 11 in Weight 328 lb BMI 45.7 BP 150/89 H Blood Pressure Location Lt brachial Position Sitting Respiration 16 Pulse 75 Pulse Source Pulse Oximeter Pulse Oximetry (%) 96 Oxygen Delivery Method Room Air Intake Visit Reasons: 6 month Follow Up Entry Level Civil Engineer Required: No Accompanied by: Life Partner Allergies No Known Allergies Allergy (Verified 10/02/25 13:32) HPI Comments Details: The patient is a 55 year old male presenting for follow-up for chronic pain management related to a shoulder injury under a worker's compensation claim. The patient's chronic right shoulder pain is related to a work injury, and he has undergone surgery for it. His condition has progressively worsened, and he reports his right arm is deteriorating. He notes that physical therapy was not beneficial and made his pain worse. The surgeon reportedly described the tissue during the repair as being like wet tissue paper, with several structures torn or severed, including a retracted biceps tendon. He has developed compensatory pain in his back, which is worsening and radiates down the right side. The patient's physical activity is severely limited due to pain, which has resulted in weight gain. His sleep has been affected, as he sleeps during the day, though he notes slightly better sleep at night. He reports his mental health is generally good, but he finds the situation difficult and acknowledges feeling down. He is in the process of applying for disability but has been denied twice, and he currently has no medical insurance. - Location: The patient reports chronic pain and deterioration in the right shoulder, compensatory pain down the right side of his upper back - Quality: He describes the pain as crippling. - Exacerbating Factors: Pain is worsened by physical activity and changes in weather, specifically dampness and cold. - Interference with Function: His pain limits his ability to be physically active, contributing to weight gain and daytime somnolence. - Affect: The patient reports his mental health is generally good, but he acknowledges the situation is a roller coaster and can pull him down. - He notes that winter and damp weather make his good days less frequent. - He is hesitant about new treatments due to previous negative outcomes. - Analgesia: He is currently taking gabapentin and celecoxib. - Adverse Effects: No adverse effects from medications were reported. - Activities of Daily Living: His activity is significantly limited - He has gained weight from inactivity. - He has difficulty with basic tasks, such as dressing, due to his right arm impairment. - Aberrant Drug Related Behaviors: No aberrant behaviors were noted. Review of Systems Narrative - General: Reports unintentional weight gain and daytime somnolence. - Psychiatric: Reports overall good mental health given his circumstances, but endorses feeling down at times and being on a mental roller coaster. - Musculoskeletal: Reports chronic, deteriorating right shoulder pain, worsening upper back pain radiating down the right side Physical Exam Exam Exam: General: awake, alert, oriented. Answers questions appropriately. Fully engaged in examination. Skin: warm, dry, intact HEENT: Normocephalic. Hearing intact. Cardiac: External chest normal in appearance. Respiratory: No cough, audible wheezing or stridor. Abdomen: without gross distension. MS: No obvious swelling or deformities. Neurological: Oriented to person, place, time and situation. Thought process intact. No gait abnormalities appreciated. Psychiatric: Appropriate mood and affect. Good judgment and insight. Vital Signs: Last Vital Signs Pulse 75 10/02/25 13:33 Resp 16 10/02/25 13:33 BP 150/89 H 10/02/25 13:33 Pulse Ox 96 10/02/25 13:33 Oxygen Delivery Method Room Air 10/02/25 13:33 BMI result Body Mass Index 45.7 Results Reviewed Results Reviewed: 02/11/2023 MRI right shoulder Assessment & Plan Assessment & Plan (1) Right shoulder pain: Code(s): M25.511 - Pain in right shoulder Category: Medical Plan The patient's current pain medications, gabapentin and celecoxib, will be refilled. A new medication, duloxetine, will be added to address his neuropathic pain. Platelet-rich plasma (PRP) injection was discussed as a potential regenerative treatment option for his chronic right shoulder pain. The patient was given informational material to review and will inform the office if he wants to proceed; it was noted that worker's compensation often approves this procedure. He will continue to work with his trimmer machine operator to obtain approval from worker's compensation for an orthopedic surgery consultation. He was advised to apply for [employer] via the [employer] to obtain medical insurance. Once insured, he is encouraged to establish care with a primary care provider for a general health check-up and to address his recent weight gain. A follow-up visit is scheduled for 3 months, per worker's compensation requirements. Patient was informed and verbally consented to the use of an ambient scribe for clinic note documentation during this visit. Medications: New 2 duloxetine 20 mg PO BID 60 caps 3RF Refilled 2 celecoxib (Celebrex) Discontinue diclofenac prior to taking this medication 50 mg PO BID 60 caps 5RF gabapentin 600 mg PO TID 90 tabs 5RF Patient Instructions: - Continue taking your gabapentin and celecoxib as prescribed. - Start the new medication, duloxetine - Read the information about Platelet-Rich Plasma (PRP) injections for your shoulder and call our office if you want to proceed with this treatment. - Continue to work with your trimmer machine operator to get an appointment with the orthopedic surgeon. - Apply for health insurance through the [employer] program. - Once you have insurance, find a primary care doctor for a general check-up. - Schedule a follow-up appointment here in 3 months. Coding Level of Care Code Est Pt Level 3 (06615) Complex visit Add On G2211 Diagnoses Right shoulder pain M25.511
[2025-10-02 13:33] VITALS: BP 150/89; PULSE 75; RESP 16; O2SAT 96; BMI 45.7
--- OUTSIDE RECORDS SUMMARY | 2025-10-02 17:38 | XMS_ITS | Clinical Summary ---
Author Organization [facility] ity Address [address] [place] [address] Care Team Providers Care [employer] Teacher Name Role Phone Unavailable Primary Care Provider Unavailabl e Social History Tobacco Use Types Packs/Day Years Used Date Smoking Tobacco: Never Assessed Sex and Gender Information Value Date Recorded Sex Assigned at Not on file Legal Sex Male 8:23 PM EST Gender Identity Not on file Sexual Orientation Not on file Plan of Treatment Health Maintenance Due Date Last Done Comments Colorectal Cancer Screening: Colonoscopy 1972 DTaP,Tdap,and Td Vaccines (1 - Tdap) 1991 Hepatitis B Vaccines (1 of 3 - 19+ 3-dose series) 1991 Pneumococcal Vaccine: 50+ Ye ars (1 of 1 - PCV) 2022 Zoster Vaccines (1 of 2) 2022 Cholesterol Screening (Lipid Panel) 11/22/2023 HIV Screening 11/22/2023 Hepatitis C Screening 11/22/2023 Social Influencers of Health Screening 11/22/2023 Depression Screening 10/29/2024 COVID-19 Vaccine (1 - 2024-2 6 season) 2025 Influenza Vaccine (#1) 2025 RSV Immunization Adult Patie nts (1 - 1-dose 75+ series) 2047 HIB Vaccines Aged Out No longer eligi [...]
== END 2025-10-02 14:21 | disposition home or self-care (01) ==
PROVIDERS: Visit Provider Registered Nurse Emergency
DX: M25.511 Pain in right shoulder (principal)
CPT/HCPCS: 99213; G2211

== ENCOUNTER → 2025-10-02 13:31 | Outpatient (BNVA) | payer OTHER, SELFPAY | PROVIDERS: Visit Provider Registered Nurse Emergency | DX: M25.511 Pain in right shoulder (principal); Z79.899 Other long term (current) drug therapy | CPT/HCPCS: 99212 ==